=== PATIENT | female | born 1990 | race Caucasian/White ===

== ENCOUNTER 2020-06-03 16:28 | Emergency (ER) | payer MEDICAID ==
[~2020-06-03] VITALS: Ht 162.6 cm; Wt 66.0 kg
[2020-06-03] MEDS ORDERED: IV NORMAL SALINE 1000ML BAG 1,000 ML IV ONE (17:45)
[2020-06-03 17:57] LABS: BILIRUBIN,URINE NEGATIVE (NEG); CLARITY,URINE CLEAR; COLOR,URINE ORANGE; NITRITE,URINE POSITIVE (NEG); PH,URINE 8.5 (<5.0-8.0); PROTEIN,URINE 100 mg/dL (NEG-TRACE)
[2020-06-03 18:02] LABS: BACTERIA,URINE MANY /HPF (0-FEW); WBC,URINE 20-40 /HPF (0-4)
[2020-06-03 18:11] LABS: BASO # 0.1 x10^3/uL (0.0-0.2); BASO % 1 % (0-3); EOS # 0.1 x10^3/uL (0.0-0.7); EOS % 1 % (0-3); HEMATOCRIT 39.5 % (36.0-47.0); HEMOGLOBIN 13.5 g/dL (12.0-15.5); LYMPH # 2.1 x10^3/uL (1.0-4.8); LYMPH % 22 % (24-48); MEAN CORPUSCULAR HEMOGLOBIN 29 pg (25-35); MEAN CORPUSCULAR HGB CONC 34 g/dL (31-37); MEAN CORPUSCULAR VOLUME 84 fL (79-100); MONO # 0.7 x10^3/uL (0.0-1.1); MONO % 7 % (0-9); NEUT # 6.7 x10^3/uL (1.8-7.7); NEUT % 70 % (31-73); PLATELET COUNT 264 x10^3/uL (140-400); RED BLOOD COUNT 4.71 x10^6/uL (3.50-5.40); WHITE BLOOD COUNT 9.6 x10^3/uL (4.0-11.0)
[2020-06-03 18:25] LABS: CALCIUM 9.2 mg/dL (8.5-10.1); CREATININE 1.1 mg/dL (0.6-1.0); GFR 58.7; POTASSIUM 3.3 mmol/L (3.5-5.1)
[2020-06-03 18:29] LABS: ALBUMIN 3.8 g/dL (3.4-5.0); ALBUMIN/GLOBULIN RATIO 0.9 (1.0-1.7); MAGNESIUM 2.4 mg/dL (1.8-2.4); TOTAL BILIRUBIN 0.4 mg/dL (0.2-1.0); TOTAL PROTEIN 7.9 g/dL (6.4-8.2)
[2020-06-03] MEDS ORDERED: cefTRIAXone IV Push 1 GM VIAL. IVP ONE (18:45)
[2020-06-03] MEDS ORDERED: IV NORMAL SALINE 500ML BAG 500 ML IV ONE (18:45)
[2020-06-03] MEDS ORDERED: ONDANSETRON PF 4 MG/2 ML VIAL. IV ONE (18:45)
[2020-06-03] MEDS ORDERED: fentaNYL PF VIAL 100 MCG/2 ML VIAL IV ONE (18:45)
[2020-06-03 19:49] VITALS: BP 126/75
[2020-06-03] MEDS ORDERED: LEVO750T5 PO (19:59)
[2020-06-03] MEDS ORDERED: HYDR-2761 PO (19:59)
--- NOTE | 2020-06-03 19:59 | PHYS DOC ---
Past Medical History Past Medical History: Anxiety, Asthma, Other Additional Past Medical Histor: ADHD Past Surgical History: Appendectomy, Smoking Status: Former Smoker Alcohol Use: Occasionally General Adult EDM: Chief Complaint: FLANK PAIN HPI: HPI: Patient is a 29 year old [f__sex] who presents with [] Review of Systems: Review of Systems: Constitutional: Denies fever or chills. [] Eyes: Denies change in visual acuity. [] HENT: Denies nasal congestion or sore throat. [] Respiratory: Denies cough or shortness of breath. [] Cardiovascular: Denies chest pain or edema. [] GI: Denies abdominal pain, nausea, vomiting, bloody stools or diarrhea. [] : Denies dysuria. [] Musculoskeletal: Denies back pain or joint pain. [] Integument: Denies rash. [] Neurologic: Denies headache, focal weakness or sensory changes. [] Endocrine: Denies polyuria or polydipsia. [] Lymphatic: Denies swollen glands. [] Psychiatric: Denies depression or anxiety. [] Heart Score: Risk Factors: Risk Factors: DM, Current or recent (<one month) smoker, HTN, HLP, family history of CAD, obesity. Risk Scores: Score 0 - 3: 2.5% MACE over next 6 weeks - Discharge Home Score 4 - 6: 20.3% MACE over next 6 weeks - Admit for Clinical Observation Score 7 - 10: 72.7% MACE over next 6 weeks - Early Invasive Strategies Current Medications: Current Medications Medications (Trade) Dose Ordered Sig/Jeannie Start Time Stop Time Status Last Admin Dose Admin Ceftriaxone Sodium (Rocephin) 1 gm 1X ONCE 06/03/20 18:45 06/03/20 18:47 DC 06/03/20 18:53 1 GM Fentanyl Citrate (Fentanyl 2ml Vial) 50 mcg 1X ONCE 06/03/20 18:45 06/03/20 18:47 DC 06/03/20 18:53 50 MCG Ondansetron HCl (Zofran) 4 mg 1X ONCE 06/03/20 18:45 06/03/20 18:47 DC 06/03/20 18:52 4 MG Sodium Chloride 500 ml @ 500 mls/hr 1X ONCE 06/03/20 18:45 06/03/20 19:44 DC 06/03/20 19:13 500 MLS/HR Allergies: Allergies: Allergies Coded Allergies Type Severity Reaction Last Updated Verified No Known Drug Allergies 06/03/20 No Physical Exam: PE: Constitutional: Well developed, well nourished, no acute distress, non-toxic appearance. [] HENT: Normocephalic, atraumatic, bilateral external ears normal, oropharynx moist, no oral exudates, nose normal. [] Eyes: PERRLA, EOMI, conjunctiva normal, no discharge. [] Neck: Normal range of motion, no tenderness, supple, no stridor. [] Cardiovascular:Heart rate regular rhythm, no murmur [] Lungs & Thorax: Bilateral breath sounds clear to auscultation [] Abdomen: Bowel sounds normal, soft, no tenderness, no masses, no pulsatile masses. [] Skin: Warm, dry, no erythema, no rash. [] Back: No tenderness, no CVA tenderness. [] Extremities: No tenderness, no cyanosis, no clubbing, ROM intact, no edema. [] Neurologic: Alert and oriented X 3, normal motor function, normal sensory function, no focal deficits noted. [] Psychologic: Affect normal, judgement normal, mood normal. [] Current Patient Data: Labs: Laboratory Tests Test 06/03/20 17:28 06/03/20 17:52 06/03/20 18:00 Urine Collection Type Void Urine Color [place] Urine Clarity Clear Urine pH 8.5 (<5.0-8.0) Urine Specific [place] 1.020 (1.000-1.030) Urine Protein 100 mg/dL (NEG-TRACE) Urine Glucose (UA) Negative mg/dL (NEG) Urine Ketones (Stick) Trace mg/dL (NEG) Urine Blood Negative (NEG) Urine Nitrite Positive (NEG) Urine Bilirubin Negative (NEG) Urine Urobilinogen Dipstick 1.0 mg/dL (0.2 mg/dL) Urine Leukocyte Esterase Moderate (NEG) Urine RBC 1-2 /HPF (0-2) Urine WBC 20-40 /HPF (0-4) Urine Squamous Epithelial Cells Mod /LPF Urine Bacteria Many /HPF (0-FEW) Urine Mucus Mod /LPF POC Urine HCG, Qualitative Hcg negative (Negative) White Blood Count 9.6 x10^3/uL (4.0-11.0) Red Blood Count 4.71 x10^6/uL (3.50-5.40) Hemoglobin 13.5 g/dL (12.0-15.5) Hematocrit 39.5 % (36.0-47.0) Mean Corpuscular Volume 84 fL (79-100) Mean Corpuscular Hemoglobin 29 pg (25-35) Mean Corpuscular Hemoglobin Concent 34 g/dL (31-37) Red Cell Distribution Width 14.0 % (11.5-14.5) Platelet Count 264 x10^3/uL (140-400) Neutrophils (%) (Auto) 70 % (31-73) Lymphocytes (%) (Auto) 22 % (24-48) L Monocytes (%) (Auto) 7 % (0-9) Eosinophils (%) (Auto) 1 % (0-3) Basophils (%) (Auto) 1 % (0-3) Neutrophils # (Auto) 6.7 x10^3/uL (1.8-7.7) Lymphocytes # (Auto) 2.1 x10^3/uL (1.0-4.8) Monocytes # (Auto) 0.7 x10^3/uL (0.0-1.1) Eosinophils # (Auto) 0.1 x10^3/uL (0.0-0.7) Basophils # (Auto) 0.1 x10^3/uL (0.0-0.2) Sodium Level 139 mmol/L (136-145) Potassium Level 3.3 mmol/L (3.5-5.1) L Chloride Level 104 mmol/L (98-107) Carbon Dioxide Level 25 mmol/L (21-32) Anion Gap 10 (6-14) Blood Urea Nitrogen 12 mg/dL (7-20) Creatinine 1.1 mg/dL (0.6-1.0) H Estimated GFR (Cockcroft-Gault) 58.7 BUN/Creatinine Ratio 11 (6-20) Glucose Level 81 mg/dL (70-99) Calcium Level 9.2 mg/dL (8.5-10.1) Magnesium Level 2.4 mg/dL (1.8-2.4) Total Bilirubin 0.4 mg/dL (0.2-1.0) Aspartate Amino Transferase (AST) 14 U/L (15-37) L Alanine Aminotransferase (ALT) 16 U/L (14-59) Alkaline Phosphatase 44 U/L (46-116) L Total Protein 7.9 g/dL (6.4-8.2) Albumin 3.8 g/dL (3.4-5.0) Albumin/Globulin Ratio 0.9 (1.0-1.7) L Lipase 125 U/L (73-393) Laboratory Tests 06/03/20 18:00 Laboratory Tests 06/03/20 18:00 Vital Signs: Vital Signs Date Time Temp Pulse Resp B/P (MAP) Pulse Ox O2 Delivery O2 Flow Rate FiO2 06/03/20 18:53 18 99 Room Air 06/03/20 18:16 98.3 105 118/73 (88) 98.3 EKG: EKG: [] Radiology/Procedures: Radiology/Procedures: [] Course & Med Decision Making: Course & Med Decision Making Pertinent Labs and Imaging studies reviewed. (See chart for details) [] Dragon Disclaimer: Dragon Disclaimer: This electronic medical record was generated, in whole or in part, using a voice recognition dictation system. Departure Departure Impression: Primary Impression: Pyelonephritis Disposition: 01 DC HOME SELF CARE/HOMELESS Condition: STABLE Referrals: NO PCP (PCP) Patient Instructions: Pyelonephritis, Adult, [id number] Additional Instructions: Fill prescription(s) and use as directed. Avoid bladder irritants such as caffeine, carbonation, and spicy foods. Increase clear fluids. Follow-up with her primary care doctor in 1 to 2 days, return to the ER if symptoms worsen, you cannot tolerate fluids or food, or you develop a fever. Scripts Hydrocodone Bit/Acetaminophen (HYDROCODONE-APAP 5-325 ) 1 Tab Tablet 0.5-1 TAB PO PRN Q6HRS PRN for SEVERE PAIN 7-10, #10 TAB 0 Refills Prov: LEIDA DOWD [employer] 06/03/20 Levofloxacin (LEVOFLOXACIN) 750 Mg Tablet 1 TAB PO DAILY, #5 TAB 0 Refills avoid strenous physical activity while taking this medication due increased risk of injury Prov: LEIDA [employer] 06/03/20 LEIDA [employer] Jun 03, 2020 19:59
== END 2020-06-03 20:11 | disposition home or self-care (01) ==
LOC: ER 16:28
DX: N12 Tubulo-interstitial nephritis, not specified as acute or chronic (principal); F41.9 Anxiety disorder, unspecified; J45.909 Unspecified asthma, uncomplicated; Z90.89 Acquired absence of other organs; Z87.891 Personal history of nicotine dependence
CPT/HCPCS: 36415; 80053; 81001; 81025; 83690; 83735; 85025; 87086; 96361; 96374; 96375; 99284; J0696; J2405; J3010; J7030; J7040

== ENCOUNTER 2020-06-15 23:01 | Emergency (ER) | payer MEDICAID ==
[~2020-06-15] VITALS: Ht 162.6 cm; Wt 65.0 kg
[~2020-06-15 23:01] MED LIST: HYDR-2761 PO; LEVO750T5 PO
[2020-06-15 23:19] VITALS: BP 124/88
[2020-06-15] MEDS ORDERED: HYDR-3164 PO (23:40)
[2020-06-15] MEDS ORDERED: NEOM10DR32 EACH EAR (23:40)
--- NOTE | 2020-06-15 23:40 | PHYS DOC ---
Past Medical History Past Medical History: Anxiety, Asthma, Other Additional Past Medical Histor: ADHD Past Surgical History: Appendectomy, Smoking Status: Former Smoker Alcohol Use: Occasionally Drug Use: None General Adult EDM: Chief Complaint: EARACHE/EAR PAIN HPI: HPI: Patient is a 29 y/o female with a history of ADHD and anxiety who presents to the ED with bilateral ear pain after she put in carbamide peroxide (debrox) ear drops in her ears 3 hrs ago. She states that she felt a chunk of wax in her ear and also reports using q-tips. Patient took Tylenol and advil without any relief of pain. She reports this is the first time she has used the medication. Denies any other symptoms. Review of Systems: Review of Systems: Constitutional: Denies fever or chills Eyes: Denies redness or eye pain HENT: Reports ear pain; Denies nasal congestion or sore throat Respiratory: Denies cough or shortness of breath Cardiovascular: Denies chest pain or palpitations GI: Denies abdominal pain, nausea, or vomiting : Denies dysuria or hematuria Musculoskeletal: Denies back pain or joint pain Integument: Denies rash or skin lesions Neurologic: Denies headache, focal weakness or sensory changes Complete systems were reviewed and found to be within normal limits, except as documented in this note. Allergies: Allergies: Allergies Coded Allergies Type Severity Reaction Last Updated Verified No Known Drug Allergies 06/03/20 No Physical Exam: PE: Constitutional: Well developed, well nourished, uncomfortable, non-toxic appearance HENT: Normocephalic, atraumatic, Bilateral TMs with erythema without drainage or pus, external canals bilaterally with irritation. Eyes: Conjunctiva normal, no discharge Neck: Normal range of motion, no tenderness, supple Lungs & Thorax: No respiratory distress, equal chest rise and fall Abdomen: Soft, no tenderness Skin: Warm, dry, no erythema, no rash Extremities: No tenderness, ROM intact, no edema Neurologic: Alert and oriented X 3, no focal deficits noted Psychologic: Affect normal, judgment normal Current Patient Data: Vital Signs: Vital Signs Date Time Temp Pulse Resp B/P (MAP) Pulse Ox O2 Delivery O2 Flow Rate FiO2 06/15/20 23:19 97.9 88 22 124/88 (100) 98 Room Air 97.9 Course & Med Decision Making: Course & Med Decision Making Patient is a 29-year-old female who presents with bilateral ear pain. Using carbamide peroxide for first time in the bilateral ears. Vital signs stable. PE showed bilateral TMs with erythema and erythema of bilateral external canals without discharge. Treated with otic Yzyaxiio-pfmtownln-mtjvmoeabfakqg suspension and hydrocodone. Patient stable for discharge with outpatient follow-up with PCP. Discussed findings and plan with patient and family, who acknowledge understanding and agreement. Liss Disclaimer: Liss Disclaimer: This electronic medical record was generated, in whole or in part, using a voice recognition dictation system. Departure Departure Impression: Primary Impression: Otitis externa Qualified Codes: H60.503 - Unspecified acute noninfective otitis externa, bilateral Additional Impression: Contact dermatitis Qualified Codes: L25.1 - Unspecified contact dermatitis due to drugs in contact with skin Disposition: 01 DC HOME SELF CARE/HOMELESS Condition: STABLE Referrals: NO PCP (PCP) Patient Instructions: Contact Dermatitis, Sxgv-rb-Rqam, Otitis Externa, Easy-t o-Read Additional Instructions: Please add Debrox to allergy list and discontinue any future list Scripts Neomycin/Polymyxin B Sulf/Hc (THEVUADP-AJGYWNBWM-PX EAR SUSP) 10 Ml Drops.susp 4 DROP EACH EAR QID for 5 Days, #10 ML Prov: MIRIAM BANKS DO 06/15/20 Hydrocodone/Apap 5-325 (NORCO 5-325 TABLET) 1 Each Tablet 0.5-1 TAB PO Q4-6HRS PRN for PAIN, #10 TAB Prov: MIRIAM BANKS DO 06/15/20 MIRIAM BANKS DO Jun 15, 2020 23:40
[2020-06-16] MEDS ORDERED: NEOMYCIN/POLYMYXIN/HC OTIC SUSPENSION 10ML BOTTLE. AU ONE
[2020-06-16] MEDS ORDERED: HYDROcodone/APAP 5/325MG 1 TAB TABLET PO ONE
== END 2020-06-15 23:58 | disposition home or self-care (01) ==
LOC: ER 23:01
DX: H60.503 Unspecified acute noninfective otitis externa, bilateral (principal); L25.1 Unspecified contact dermatitis due to drugs in contact with skin; J45.909 Unspecified asthma, uncomplicated; F90.9 Attention-deficit hyperactivity disorder, unspecified type; Z87.891 Personal history of nicotine dependence
CPT/HCPCS: 99283

== ENCOUNTER 2021-02-22 13:29 | Emergency (ER) | payer MEDICAID, OTHER ==
[~2021-02-22] VITALS: Ht 162.6 cm; Wt 128.0 kg
[~2021-02-22 13:29] MED LIST changes: +HYDR-3164 PO; +NEOM10DR32 EACH EAR
[2021-02-22 15:56] LABS: BILIRUBIN,URINE SMALL (NEG); CLARITY,URINE CLEAR; COLOR,URINE AMBER; NITRITE,URINE NEGATIVE (NEG); PROTEIN,URINE NEGATIVE (NEG-TRACE); UROBILINOGEN,URINE 0.2 mg/dL (0.2 mg/dL)
[2021-02-22 16:00] LABS: BACTERIA,URINE MODERATE /HPF (0-FEW); RBC,URINE 0 /HPF (0-2)
[2021-02-22] MEDS ORDERED: IV NORMAL SALINE 1000ML BAG 1,000 ML IV SCH (16:15)
[2021-02-22] MEDS ORDERED: KETOROLAC 30 MG/ML VIAL. IVP ONE (16:15)
[2021-02-22] MEDS ORDERED: ONDANSETRON PF 4 MG/2 ML VIAL. IVP ONE (16:15)
--- NOTE | 2021-02-22 16:17 | PHYS DOC ---
Past Medical History Past Medical History: Kidney Infection, UTI Additional Past Medical Histor: ADHD Past Surgical History: Appendectomy, Smoking Status: Current Every Day Smoker Additional Information: VAP, E CIG Alcohol Use: None Drug Use: None General Adult EDM: Chief Complaint: NAUSEA/VOMITING/DIARRHEA HPI: HPI: Patient is a 30 year old female who presents with began having epigastric abdominal sharp pain that radiates around to her back this morning and vomited once. She also has some nausea. She states that she has had a kidney infection in the past. Patient denies shortness of breath, fever, chills, body aches, diarrhea, chest pain, numbness or tingling, dizziness, headache, cough, focal weakness. She has a history of ADHD, , appendectomy, smoking, kidney infection and UTIs. She rates her pain at this time a 5 out of 10. She did take Tylenol at noon, Zofran 4 mg, muscle relaxer. Review of Systems: Review of Systems: Constitutional: Denies fever or chills. [] Eyes: Denies change in visual acuity. [] HENT: Denies nasal congestion or sore throat. [] Respiratory: Denies cough or shortness of breath. [] Cardiovascular: Denies chest pain or edema. [] GI: +abdominal pain, +nausea, +vomiting, denies bloody stools or diarrhea. [] : Denies dysuria. [] Musculoskeletal: + bilateral flank back pain or denies joint pain. [] Integument: Denies rash. [] Neurologic: Denies headache, focal weakness or sensory changes. [] Endocrine: Denies polyuria or polydipsia. [] Lymphatic: Denies swollen glands. [] Psychiatric: Denies depression or anxiety. [] Heart Score: C/O Chest Pain: No Risk Factors: Risk Factors: DM, Current or recent (<one month) smoker, HTN, HLP, family history of CAD, obesity. Risk Scores: Score 0 - 3: 2.5% MACE over next 6 weeks - Discharge Home Score 4 - 6: 20.3% MACE over next 6 weeks - Admit for Clinical Observation Score 7 - 10: 72.7% MACE over next 6 weeks - Early Invasive Strategies Allergies: Allergies: Allergies Coded Allergies Type Severity Reaction Last Updated Verified No Known Drug Allergies 06/03/20 No Physical Exam: PE: Constitutional: Well developed, well nourished, no acute distress, non-toxic appearance. [] HENT: Normocephalic, atraumatic, bilateral external ears normal, oropharynx moist, no oral exudates, nose normal. [] Eyes: PERRLA, EOMI, conjunctiva normal, no discharge. [] Neck: Normal range of motion, no tenderness, supple, no stridor. [] Cardiovascular:Heart rate regular rhythm, no murmur [] Lungs & Thorax: Bilateral breath sounds clear to auscultation [] Abdomen: Bowel sounds normal, soft, generalized tenderness, no masses, no pulsatile masses. [] Skin: Warm, dry, no erythema, no rash. [] Back: No tenderness, bilateral CVA tenderness. [] Extremities: No tenderness, no cyanosis, no clubbing, ROM intact, no edema. [] Neurologic: Alert and oriented X 3, normal motor function, normal sensory function, no focal deficits noted. [] Psychologic: Affect normal, judgement normal, mood normal. [] Current Patient Data: Labs: Laboratory Tests Test 02/22/21 15:45 Urine Collection Type Unknown Urine Color [place] Urine Clarity Clear Urine pH 7.0 (<5.0-8.0) Urine Specific [place] >=1.030 (1.000-1.030) Urine Protein Negative mg/dL (NEG-TRACE) Urine Glucose (UA) Negative mg/dL (NEG) Urine Ketones (Stick) Trace mg/dL (NEG) Urine Blood Negative (NEG) Urine Nitrite Negative (NEG) Urine Bilirubin Small (NEG) Urine Urobilinogen Dipstick 0.2 mg/dL (0.2 mg/dL) Urine Leukocyte Esterase Negative (NEG) Urine RBC 0 /HPF (0-2) Urine WBC 1-4 /HPF (0-4) Urine Squamous Epithelial Cells Many /LPF Urine Bacteria Moderate /HPF (0-FEW) Urine Mucus Mod /LPF Vital Signs: Vital Signs Date Time Temp Pulse Resp B/P (MAP) Pulse Ox O2 Delivery O2 Flow Rate FiO2 02/22/21 15:20 98.7 105 22 105/65 (78) 100 Room Air 98.7 EKG: EKG: [] Radiology/Procedures: Radiology/Procedures: [] Impression: [facility] [address] [place] [address] IMAGING REPORT Signed PATIENT: HARISH PANTOJA MACCOUNT: [id number] : 1990 LOCATION: ER AGE: 30 SEX: F EXAM STATUS: REG ER ORD. PHYSICIAN: NELLY CAAL APRN REASON: VOMITING, EPIGASTRIC PAIN PROCEDURE: PORTABLE CHEST 1V EXAM: Chest, single view. HISTORY: Vomiting. Pain. COMPARISON: None. FINDINGS: A frontal view of the chest is obtained. There is no infiltrate, pleural effusion or pneumothorax. The heart is normal in size. IMPRESSION: No acute pulmonary finding. Electronically signed by: Antonietta Zhao MD (02/22/2021 5:22 PM) [id number] DICTATED and SIGNED BY: ANTONIETTA ZHAO MD DATE: 02/22/21 [id number] [facility] [address] [place] [address] IMAGING REPORT Signed PATIENT: HARISH PANTOJA MACCOUNT: [id number] : 1990 LOCATION: ER AGE: 30 SEX: F EXAM STATUS: REG ER ORD. PHYSICIAN: NELLY CAAL APRN REASON: VOMITING, TENDERNESS PROCEDURE: CT ABD PELV W/ IV CONTRST ONLY EXAM: Abdomen and pelvis CT with intravenous contrast. HISTORY: Pain. TECHNIQUE: Computed tomographic images of the abdomen and pelvis were obtained following the administration of intravenous contrast. Multiplanar reformatting was performed. *One or more of the following individualized dose reduction techniques were utilized for this examination: 1. Automated exposure control. 2. Adjustment of the mA and/or kV according to patient size. 3. Use of iterative reconstruction technique. COMPARISON: None. FINDINGS: Evaluation of the lower thorax is unremarkable. There is infiltration of the liver along the falciform ligament. No suspicious hepatic lesion is seen. The gallbladder, pancreas, stomach and adrenal glands are unremarkable. The spleen is upper normal in size. The kidneys are unremarkable. The appendix is absent. There is a large amount of stool throughout the colon. There is no evidence of bowel obstruction. There is no abnormal bowel wall thickening. The bladder is nearly empty. The uterus and adnexal regions are unremarkable. There is no lymphadenopathy. There is no suspicious osseous lesion. IMPRESSION: 1. Moderate colonic stool. Correlate for constipation. 2. No acute abdominal or pelvic finding. Electronically signed by: Antonietta Zhao MD (02/22/2021 5:39 PM) [id number] DICTATED and SIGNED BY: ANTONIETTA ZHAO MD DATE: 02/22/21 [id number] 0 Course & Med Decision Making: Course & Med Decision Making Pertinent Labs and Imaging studies reviewed. (See chart for details) See HPI. Alert and oriented x4. Ambulatory with a steady gait. Abdomen is sof t with generalized tenderness. Bilateral CVA tenderness. Skin pink warm and dry. Speaks in full clear sentences. Lungs are clear to auscultation all lobes. [] Dragon Disclaimer: Dragon Disclaimer: This electronic medical record was generated, in whole or in part, using a voice recognition dictation system. Departure Departure Impression: Primary Impression: Constipation Qualified Codes: K59.00 - Constipation, unspecified Disposition: HOME / SELF CARE / HOMELESS Condition: STABLE Referrals: NO PCP (PCP) Patient Instructions: Constipation, Adult Additional Instructions: Follow-up with primary care provider. Drink plenty of fluids. Take medication as prescribed. Scripts Magnesium Citrate (MAGNESIUM CITRATE) 296 Ml Solution 296 ML PO ONCE, #296 ML Prov: NELLY CAAL APRN 02/22/21 NELLY CAAL APRN Feb 22, 2021 16:17
[2021-02-22] MEDS ORDERED: IV NORMAL SALINE 1000ML BAG 1,000 ML IV ONE (16:30)
[2021-02-22 16:42] LABS: BASO % 0 % (0-3); EOS % 0 % (0-3); HEMATOCRIT 39.1 % (36.0-47.0); HEMOGLOBIN 13.3 g/dL (12.0-15.5); LYMPH # 0.4 x10^3/uL (1.0-4.8); LYMPH % 9 % (24-48); MEAN CORPUSCULAR HEMOGLOBIN 29 pg (25-35); MEAN CORPUSCULAR HGB CONC 34 g/dL (31-37); MEAN CORPUSCULAR VOLUME 86 fL (79-100); MONO # 0.1 x10^3/uL (0.0-1.1); MONO % 3 % (0-9); NEUT # 4.2 x10^3/uL (1.8-7.7); NEUT % 88 % (31-73); PLATELET COUNT 154 x10^3/uL (140-400); RED BLOOD COUNT 4.52 x10^6/uL (3.50-5.40); RED CELL DISTRIBUTION WIDTH 12.7 % (11.5-14.5); WHITE BLOOD COUNT 4.8 x10^3/uL (4.0-11.0)
[2021-02-22 16:57] LABS: CALCIUM 8.2 mg/dL (8.5-10.1); CREATININE 0.8 mg/dL (0.6-1.0); GFR 84.2; POTASSIUM 3.5 mmol/L (3.5-5.1)
[2021-02-22] MEDS ORDERED: IOHEXOL 300 MG/ML 100ML VIAL. IV ONE (17:00)
[2021-02-22] MEDS ORDERED: CONTRAST GIVEN. MC PRN (17:00)
[2021-02-22 17:02] LABS: ALBUMIN 3.4 g/dL (3.4-5.0); TOTAL BILIRUBIN 0.7 mg/dL (0.2-1.0); TOTAL PROTEIN 6.9 g/dL (6.4-8.2)
[2021-02-22 17:13] LABS: U PREG PATIENT NEGATIVE (NEG)
--- NOTE | 2021-02-22 17:24 | RAD ---
EXAM: Chest, single view. HISTORY: Vomiting. Pain. COMPARISON: None. FINDINGS: A frontal view of the chest is obtained. There is no infiltrate, pleural effusion or pneumo thorax. The heart is normal in size. IMPRESSION: No acute pulmonary finding. Electronically signed by: Antonietta Zhao MD (02/22/2021 5:22 PM) [id number]
--- NOTE | 2021-02-22 17:42 | RAD ---
EXAM: Abdomen and pelvis CT with intravenous contrast. HISTORY: Pain. TECHNIQUE: Computed tomographic images of the abdomen and pelvis were obtained following the administ ration of intravenous contrast. Multiplanar reformatting was performed. *One or more of the following individualized dose reduction techniques were utilized for this examina tion: 1. Automated exposure control. 2. Adjustment of the mA and/or kV according to patient size. 3. Use of iterative reconstruction technique. COMPARISON: None. FINDINGS: Evaluation of the lower thorax is unremarkable. There is infiltration of the liver along th e falciform ligament. No suspicious hepatic lesion is seen. The gallbladder, pancreas, stomach and ad renal glands are unremarkable. The spleen is upper normal in size. The kidneys are unremarkable. The appendix is absent. There is a large amount of stool throughout the colon. There is no evidence o f bowel obstruction. There is no abnormal bowel wall thickening. The bladder is nearly empty. The esha deejay and adnexal regions are unremarkable. There is no lymphadenopathy. There is no suspicious osseous lesion. IMPRESSION: 1. Moderate colonic stool. Correlate for constipation. 2. No acute abdominal or pelvic finding. Electronically signed by: Antonietta Zhao MD (02/22/2021 5:39 PM) PRASHANTH
[2021-02-22 17:43] LABS: % BANDS 7 % (0-9); % BASOS 1 % (0-3); % LYMPHS 8 % (24-48); % MONOS 2 % (0-10); % SEGS 82 % (35-66)
[2021-02-22 17:44] LABS: PLT ESTIMATE ADEQUATE (ADEQUATE)
[2021-02-22] MEDS ORDERED: MAGN296S68 PO (17:51)
--- NOTE | 2021-02-22 18:22 | EKG ---
[facility] [address] [place] [address] Test Date: 2021-02-22 Test Time: 17:22:42 Pat Name: HARISH PANTOJA Department: Room: Gender: F Osd Clerk: : 1990 Requested By: NELLY CAAL Order Number: [id number] Reading MD: Measurements Intervals Simpson Rate: 89 P: 51 WA: 144 QRS: 67 QRSD: 88 T: 55 QT: 392 QTc: 478 Interpretive Statements SINUS RHYTHM INCOMPLETE RIGHT BUNDLE BRANCH BLOCK QRS(T) CONTOUR ABNORMALITY CONSIDER ANTEROSEPTAL MYOCARDIAL DAMAGE PROLONGED QT POSSIBLY ABNORMAL ECG RI6.01 No previous ECG available for comparison
[2021-02-22] MEDS ORDERED: METOCLOPRAMIDE HCL 10 MG/2 ML VIAL. IVP ONE (20:00)
[2021-02-22 21:06] VITALS: BP 117/74
== END 2021-02-22 21:25 | disposition home or self-care (01) ==
LOC: ER 13:29
DX: K59.00 Constipation, unspecified (principal); F17.200 Nicotine dependence, unspecified, uncomplicated; F90.9 Attention-deficit hyperactivity disorder, unspecified type; Z90.89 Acquired absence of other organs; F17.210 Nicotine dependence, cigarettes, uncomplicated
CPT/HCPCS: 36415; 71045; 74177; 80053; 81001; 81025; 83690; 84484; 85007; 85025; 87086; 93005; 96361; 96374; 96375; 99285; J1885; J2405; J2765; J7030; Q9967

== ENCOUNTER 2021-04-23 10:13 | Observation (INO) | payer MEDICAID ==
[~2021-04-23] VITALS: Ht 162.6 cm; Wt 51.0 kg
[~2021-04-23 10:13] MED LIST changes: +MAGN296S68 PO
--- NOTE | 2021-04-23 10:42 | PHYS DOC ---
Past Medical History Past Medical History: Kidney Infection, UTI Additional Past Medical Histor: ADHD Past Surgical History: Appendectomy, Smoking Status: Current Every Day Smoker Alcohol Use: None Drug Use: None General Adult EDM: Chief Complaint: FLANK PAIN HPI: HPI: Patient is a 30 year old female who presents with 4 days of bilateral flank pain but she states more so on the left that radiates all across her abdomen. She rates her pain a 10 out of 10 and states is a throbbing ache. She has been on Bactrim for the last 4 days for urinary tract infection. She states she is not getting better. States she has been running a fever and having body aches. States that her primary care sent her here to the emergency room. She did take Tylenol earlier this morning without relief. Patient denies nausea, vomiting, diarrhea, cough, shortness of breath, chest pain, dizziness, headache, numbness or tingling, focal weakness, vision change. She has a history of kidney infection, UTI, ADHD, , appendectomy, smoking. Review of Systems: Review of Systems: Constitutional: + fever or +chills. [] Eyes: Denies change in visual acuity. [] HENT: Denies nasal congestion or sore throat. [] Respiratory: Denies cough or shortness of breath. [] Cardiovascular: Denies chest pain or edema. [] GI: + abdominal pain, denies nausea, vomiting, bloody stools or diarrhea. [] : Denies dysuria. [] Musculoskeletal: +Bilateral flank back pain or denies joint pain. + Body aches [] Integument: Denies rash. [] Neurologic: Denies headache, focal weakness or sensory changes. [] Endocrine: Denies polyuria or polydipsia. [] Lymphatic: Denies swollen glands. [] Psychiatric: Denies depression or anxiety. [] Heart Score: C/O Chest Pain: No Risk Factors: Risk Factors: DM, Current or recent (<one month) smoker, HTN, HLP, family history of CAD, obesity. Risk Scores: Score 0 - 3: 2.5% MACE over next 6 weeks - Discharge Home Score 4 - 6: 20.3% MACE over next 6 weeks - Admit for Clinical Observation Score 7 - 10: 72.7% MACE over next 6 weeks - Early Invasive Strategies Allergies: Allergies: Allergies Coded Allergies Type Severity Reaction Last Updated Verified No Known Drug Allergies 06/03/20 No Physical Exam: PE: Constitutional: Well developed, well nourished, no acute distress, non-toxic appearance. [] HENT: Normocephalic, atraumatic, bilateral external ears normal, oropharynx moist, no oral exudates, nose normal. [] Eyes: PERRLA, EOMI, conjunctiva normal, no discharge. [] Neck: Normal range of motion, no tenderness, supple, no stridor. [] Cardiovascular:Heart rate regular tachycardia rhythm, no murmur [] Lungs & Thorax: Bilateral breath sounds clear to auscultation [] Abdomen: Bowel sounds normal, soft, generalized tenderness, no masses, no pulsatile masses. [] Skin: Warm, dry, no erythema, no rash. [] Back: No tenderness,Bilateral CVA tenderness. [] Extremities: No tenderness, no cyanosis, no clubbing, ROM intact, no edema. [] Neurologic: Alert and oriented X 3, normal motor function, normal sensory function, no focal deficits noted. [] Psychologic: Affect normal, judgement normal, mood normal. [] Current Patient Data: Vital Signs: Vital Signs Date Time Temp Pulse Resp B/P (MAP) Pulse Ox O2 Delivery O2 Flow Rate FiO2 04/23/21 10:20 98.8 110 16 133/71 (88) 100 Room Air 98.8 EKG: EKG: [] Radiology/Procedures: Radiology/Procedures: [] Impression: [facility] [address] [place], [place] [id number] IMAGING REPORT Signed PATIENT: HARISH PANTOJA MACCOUNT: [id number] : 1990 LOCATION: ER AGE: 30 SEX: F EXAM STATUS: REG ER ORD. PHYSICIAN: NELLY CAAL APRN REASON: flank pain, abdominal pain, fever PROCEDURE: CT ABD PELV W/ IV CONTRST ONLY EXAMINATION: CT abdomen and pelvis with IV contrast. INDICATION:30 years, Female, flank pain, abdominal pain, fever. TECHNIQUE: Axial CT images of the abdomen and pelvis were obtained. Coronal and sagittal reformatted performed. COMPARISON: 02/22/2021. Exposure: One or more of the following individualized dose reduction techniques were utilized for this examination: 1. Automated exposure control 2. Adjustment of the mA and/or kV according to patient size 3. Use of iterative reconstruction technique. FINDINGS: LOWER CHEST: Unremarkable ABDOMEN/PELVIS: Asymmetric mildly enlarged left kidney with heterogeneous enhancement and perinephric fat stranding. No loculated fluid collection to suggest abscess. No hydronephrosis or nephrolithiasis in either kidney. Unremarkable urinary bladder. Liver, spleen, pancreas, biliary ducts, and adrenals are unremarkable. No bowel obstruction. No lymphadenopathy in the abdomen or pelvis by size criteria. Normal caliber abdominal aorta. Mesenteric arteries and portal vein are patent. Unremarkable uterus. MUSCULOSKELETAL: No acute osseous process. IMPRESSION: Acute uncomplicated left pyelonephritis. Electronically signed by: Erin Deleon MD (04/23/2021 12:44 PM) [facility] DICTATED and SIGNED BY: ERIN DELEON MD DATE: 04/23/21 [id number] Course & Med Decision Making: Course & Med Decision Making Pertinent Labs and Imaging studies reviewed. (See chart for details) See HPI. Alert and oriented x4. Ambulatory steady gait. Skin pink warm dry. Tachycardic. Abdomen is soft with generalized tenderness. Bilateral CVA tenderness. Mucous membranes moist. Cap refill less than 2 seconds. She is afebrile this time. CT shows pyelonephritis. She is received Rocephin IV. She is received 2 L of normal saline. She meets sepsis. Lactic acid 2.5. Tachycardic. Failed out patient therapy. [] Liss Disclaimer: Liss Disclaimer: This electronic medical record was generated, in whole or in part, using a voice recognition dictation system. Date and Time of Reassessment Date: Apr 23, 2021 Time: 12:49 Fluid Challenge Is the fluid challenge complet: No IBW Target Volume Used: No BMI > 30: No Vital Signs Vital Signs: Vital Signs Date Time Temp Pulse Resp B/P (MAP) Pulse Ox O2 Delivery O2 Flow Rate FiO2 04/23/21 12:00 99 16 113/60 (77) 99 Room Air 04/23/21 10:20 98.8 98.8 Temperature Source: Oral Respirations Respiratory Effort: Normal Respiratory Pattern: Normal Cardiovascular Pulse Rhythm: Regular Heart: Nml rate, reg. rhythm Capillary Refil Capillary Refill: Rt Hand < 3 seconds Peripheral Pulse Pulse Location: Radial Pulse Strength: Normal (2+) Pulse Assessment Method: Monitor Integumentary Skin: Warm Skin Moisture: Dry Skin Turgor: Normal Skin Color: warm Fingernail Color: WNL Departure Departure Impression: Primary Impression: Pyelonephritis Additional Impression: SIRS (systemic inflammatory response syndrome) Disposition: 09 ADMITTED INPATIENT Admitting Physician: HIMVickey Condition: STABLE Referrals: UNKNOWN PCP NAME (PCP) NELLY CAAL GROC[employer] CARRIER Apr 23, 2021 10:42
[2021-04-23] MEDS ORDERED: IV NORMAL SALINE 1000ML BAG 1,000 ML IV SCH (10:45)
[2021-04-23] MEDS ORDERED: fentaNYL PF VIAL 100 MCG/2 ML VIAL IVP ONE (10:45)
[2021-04-23 10:48] LABS: BASO % 0 % (0-3); EOS % 0 % (0-3); HEMATOCRIT 36.6 % (36.0-47.0); HEMOGLOBIN 12.3 g/dL (12.0-15.5); LYMPH # 0.6 x10^3/uL (1.0-4.8); LYMPH % 8 % (24-48); MEAN CORPUSCULAR HEMOGLOBIN 29 pg (25-35); MEAN CORPUSCULAR HGB CONC 34 g/dL (31-37); MEAN CORPUSCULAR VOLUME 88 fL (79-100); MONO # 0.3 x10^3/uL (0.0-1.1); MONO % 4 % (0-9); NEUT # 6.7 x10^3/uL (1.8-7.7); NEUT % 88 % (31-73); PLATELET COUNT 145 x10^3/uL (140-400); RED BLOOD COUNT 4.18 x10^6/uL (3.50-5.40); RED CELL DISTRIBUTION WIDTH 13.6 % (11.5-14.5); WHITE BLOOD COUNT 7.7 x10^3/uL (4.0-11.0)
[2021-04-23 10:53] LABS: CALCIUM 8.7 mg/dL (8.5-10.1); GFR 65.1; POTASSIUM 3.3 mmol/L (3.5-5.1)
[2021-04-23 10:59] LABS: ALBUMIN 2.8 g/dL (3.4-5.0); ALBUMIN/GLOBULIN RATIO 0.7 (1.0-1.7); TOTAL BILIRUBIN 0.3 mg/dL (0.2-1.0); TOTAL PROTEIN 6.9 g/dL (6.4-8.2)
[2021-04-23] MEDS ORDERED: IOHEXOL 300 MG/ML 100ML VIAL. IV ONE (11:30)
[2021-04-23 11:32] LABS: % BANDS 6 % (0-9); % BASOS 1 % (0-3); % LYMPHS 5 % (24-48); % MONOS 2 % (0-10); % SEGS 86 % (35-66); PLT ESTIMATE ADEQUATE (ADEQUATE)
[2021-04-23] MEDS ORDERED: CONTRAST GIVEN. MC PRN (11:45)
[2021-04-23 11:57] LABS: BILIRUBIN,URINE NEGATIVE (NEG); CLARITY,URINE CLOUDY; COLOR,URINE YELLOW; NITRITE,URINE NEGATIVE (NEG); PROTEIN,URINE 30 mg/dL (NEG-TRACE); UROBILINOGEN,URINE 0.2 mg/dL (0.2 mg/dL)
[2021-04-23 11:58] LABS: BACTERIA,URINE MODERATE /HPF (0-FEW); RBC,URINE 0 /HPF (0-2)
[2021-04-23] MEDS ORDERED: IV NORMAL SALINE 1000ML BAG 1,000 ML IV ONE (12:00)
--- NOTE | 2021-04-23 12:46 | RAD ---
EXAMINATION: CT abdomen and pelvis with IV contrast. INDICATION:30 years, Female, flank pain, abdominal pain, fever. TECHNIQUE: Axial CT images of the abdomen and pelvis were obtained. Coronal and sagittal reformatted performed. COMPARISON: 02/22/2021. Exposure: One or more of the following individualized dose reduction techniques were utilized for thi s examination: 1. Automated exposure control 2. Adjustment of the mA and/or kV according to patient size 3. Use of iterative reconstruction technique. FINDINGS: LOWER CHEST: Unremarkable ABDOMEN/PELVIS: Asymmetric mildly enlarged left kidney with heterogeneous enhancement and perinephric fat stranding. No loculated fluid collection to suggest abscess. No hydronephrosis or nephrolithiasis in either kidn ey. Unremarkable urinary bladder. Liver, spleen, pancreas, biliary ducts, and adrenals are unremarkable. No bowel obstruction. No lymph adenopathy in the abdomen or pelvis by size criteria. Normal caliber abdominal aorta. Mesenteric mony bull and portal vein are patent. Unremarkable uterus. MUSCULOSKELETAL: No acute osseous process. IMPRESSION: Acute uncomplicated left pyelonephritis. Electronically signed by: Tami Deleon MD (04/23/2021 12:44 PM) [facility]
[2021-04-23] MEDS ORDERED: cefTRIAXone IV Push 1 GM VIAL. IVP ONE (13:00)
[2021-04-23] MEDS ORDERED: KETOROLAC 30 MG/ML VIAL. IVP ONE (13:15)
[2021-04-23] MEDS ORDERED: ONDANSETRON PF 4 MG/2 ML VIAL. IVP PRN ×2 (13:15→14:00)
[2021-04-23] MEDS ORDERED: ACETAMINOPHEN 325 MG TABLET. PO PRN ×2 (13:15→14:00)
[2021-04-23 13:50] VITALS: BP 102/57
--- NOTE | 2021-04-23 13:55 | PDOC1 ---
History and Physical Date of Service: DOS: DATE: 04/23/21 TIME: 13:49 Chief Complaint: Chief Complain: Flank pain History of Present Illness: HPI: 30-year-old female with past medical history of ADHD, depression and anxiety and multiple UTIs in the past year after her who comes in with bilateral flank pain that radiates across her belly. Pain is 10 out of 10 and is a throbbing in nature. She has been in Bactrim for the last 4 days. She feels is not getting better. Also endorses body aches and fevers. PCP sent her to the emergency room for further evaluation. No exacerbating factors or alleviating factors. She did take Tylenol without any avail. Denies nausea vomiting, diarrhea, shortness of breath, chest pain, palpitations, headaches, syncope. 30 year old female who presents with 4 days of bilateral flank pain but she states more so on the left that radiates all across her abdomen. She rates her pain a 10 out of 10 and states is a throbbing ache. She has been on Bactrim for the last 4 days for urinary tract infection. She states she is not getting better. States she has been running a fever and having body aches. States that her primary care sent her here to the emergency room. She did take Tylenol earlier this morning without relief. Patient denies nausea, vomiting, diarrhea, cough, shortness of breath, chest pain, dizziness, headache, numbness or tingling, focal weakness, vision change. She has a history of kidney infection, UTI, ADHD, , appendectomy, smoking. Past Medical/Surgical History: PMH/PSH: Past Medical History: Kidney Infection, UTI, ADHD Past Surgical History: Appendectomy, Allergies: Allergies: Coded Allergies: ciprofloxacin (Verified Allergy, Unknown, 04/23/21) hot flashes/incontinence "I think I had a seizure". clindamycin (Verified Allergy, Unknown, 04/23/21) incontinence, hot flashes, "I think I had a seizure." Family History: Family History: Reviewed the relevant findings Social History: Social History: Smoking Status: Current Every Day Smoker Alcohol Use: None Drug Use: None Current Medications: Current Medications Current Medications Sodium Chloride 1,000 ml @ 1,000 mls/hr Q1H IV Last administered on 04/23/21at 10:49; Start 04/23/21 at 10:45; Stop 04/23/21 at 11:44; Status DC Fentanyl Citrate (Fentanyl 2ml Vial) 50 mcg 1X ONCE IVP Last administered on 04/23/21at 10:49; Start 04/23/21 at 10:45; Stop 04/23/21 at 11:18; Status DC Iohexol (Omnipaque 300 Mg/ml) 75 ml 1X ONCE IV Last administered on 04/23/21at 11:55; Start 04/23/21 at 11:30; Stop 04/23/21 at 11:32; Status DC Info (CONTRAST GIVEN -- Rx MONITORING) 1 each PRN DAILY PRN MC SEE COMMENTS; Start 04/23/21 at 11:45; Stop 04/25/21 at 11:44 Sodium Chloride 1,000 ml @ 1,000 mls/hr 1X ONCE IV Last administered on 04/23/21at 12:00; Start 04/23/21 at 12:00; Stop 04/23/21 at 12:59; Status DC Ceftriaxone Sodium (Rocephin) 1 gm 1X ONCE IVP Last administered on 04/23/21at 13:18; Start 04/23/21 at 13:00; Stop 04/23/21 at 13:01; Status DC Ondansetron HCl (Zofran) 4 mg PRN Q8HRS PRN IVP NAUSEA/VOMITING; Start 04/23/21 at 13:15; Stop 04/24/21 at 13:14 Acetaminophen (Tylenol) 650 mg PRN Q4HRS PRN PO FEVER > 100.3'F; Start 04/23/21 at 13:15; Stop 04/24/21 at 13:14 Ketorolac Tromethamine (Toradol 30mg Vial) 30 mg 1X ONCE IVP Last administered on 04/23/21at 13:18; Start 04/23/21 at 13:15; Stop 04/23/21 at 13:16; Status DC Active Scripts Active Magnesium Citrate 296 Ml Solution 296 Ml PO ONCE Wdoqptre-Dmnamomdv-Up Ear Susp (Neomycin/Polymyxin B Sulf/Hc) 10 Ml Drops.susp 4 Drop EACH EAR QID 5 Days [place] 5-325 Tablet (Acetaminophen/Hydrocodone Bitart) 1 Each Tablet 0.5-1 Tab PO Q4-6HRS PRN Hydrocodone-Apap 5-325 (Hydrocodone Bit/Acetaminophen) 1 Tab Tablet 0.5-1 Tab PO PRN Q6HRS PRN Levofloxacin 750 Mg Tablet 1 Tab PO DAILY avoid strenous physical activity while taking this medication due increased risk of injury ROS: Review of Systems Review of System REVIEW OF SYSTEMS: GENERAL: Denies weakness SKIN: No bruising, hair changes or rashes. EYES: No blurred, double or loss of vision. NOSE AND THROAT: No history of nosebleeds, hoarseness or sore throat. HEART: No history of palpitations, chest pain or shortness of breath on exertion. LUNGS: Denies cough, hemoptysis, wheezing or shortness of breath. GASTROINTESTINAL: Positive abdominal pain GENITOURINARY: Positive for bilateral flank pain NEUROLOGIC: Denies history of numbness, tingling, or tremor. PSYCHIATRIC: No history of panic, anxiety or depression. ENDOCRINE: No history of heat or cold intolerance, polyuria or polydipsia. EXTREMITIES: Positive for body aches Physical Exam: Vital Signs: Vital Signs Date Time Temp Pulse Resp B/P (MAP) Pulse Ox O2 Delivery O2 Flow Rate FiO2 04/23/21 12:00 99 16 113/60 (77) 99 Room Air 04/23/21 10:20 98.8 98.8 Physcial Exam: General: Well developed, well nourished, no acute distress, well appearing HEENT: Pupils equally round and reactive to light, EOMI, no discharge, normal conjunctiva Neck: Supple, no nuchal rigidity, no JVD, trachea midline, no tenderness Cardiac: RRR, no murmurs, no gallops, no rubs Chest/Lungs: CTAB, no wheeze, no rhonchi, no crackles Abdomen: soft, non-distended, no guarding, no peritoneal signs, tender in the suprapubic region positive CVA tenderness. On the left side Back: No tenderness Extremities: no edema, pulses intact, non-tender,capillary refill <3 sec bilateral upper and lower extremities, Neuro: Alert and oriented x 4, no focal deficits, normal speech Labs: Labs: Laboratory Tests Test 04/23/21 10:36 04/23/21 11:30 04/23/21 11:36 White Blood Count 7.7 x10^3/uL (4.0-11.0) Red Blood Count 4.18 x10^6/uL (3.50-5.40) Hemoglobin 12.3 g/dL (12.0-15.5) Hematocrit 36.6 % (36.0-47.0) Mean Corpuscular Volume 88 fL (79-100) Mean Corpuscular Hemoglobin 29 pg (25-35) Mean Corpuscular Hemoglobin Concent 34 g/dL (31-37) Red Cell Distribution Width 13.6 % (11.5-14.5) Platelet Count 145 x10^3/uL (140-400) Neutrophils (%) (Auto) 88 % (31-73) Lymphocytes (%) (Auto) 8 % (24-48) Monocytes (%) (Auto) 4 % (0-9) Eosinophils (%) (Auto) 0 % (0-3) Basophils (%) (Auto) 0 % (0-3) Neutrophils # (Auto) 6.7 x10^3/uL (1.8-7.7) Lymphocytes # (Auto) 0.6 x10^3/uL (1.0-4.8) Monocytes # (Auto) 0.3 x10^3/uL (0.0-1.1) Eosinophils # (Auto) 0.0 x10^3/uL (0.0-0.7) Basophils # (Auto) 0.0 x10^3/uL (0.0-0.2) Segmented Neutrophils % 86 % (35-66) Band Neutrophils % 6 % (0-9) Lymphocytes % 5 % (24-48) Monocytes % 2 % (0-10) Basophils % 1 % (0-3) Platelet Estimate Adequate (ADEQUATE) Sodium Level 135 mmol/L (136-145) Potassium Level 3.3 mmol/L (3.5-5.1) Chloride Level 99 mmol/L (98-107) Carbon Dioxide Level 27 mmol/L (21-32) Anion Gap 9 (6-14) Blood Urea Nitrogen 10 mg/dL (7-20) Creatinine 1.0 mg/dL (0.6-1.0) Estimated GFR (Cockcroft-Gault) 65.1 BUN/Creatinine Ratio 10 (6-20) Glucose Level 151 mg/dL (70-99) Lactic Acid Level 2.5 mmol/L (0.4-2.0) Calcium Level 8.7 mg/dL (8.5-10.1) Total Bilirubin 0.3 mg/dL (0.2-1.0) Aspartate Amino Transf (AST/SGOT) 14 U/L (15-37) Alanine Aminotransferase (ALT/SGPT) 27 U/L (14-59) Alkaline Phosphatase 59 U/L (46-116) Total Protein 6.9 g/dL (6.4-8.2) Albumin 2.8 g/dL (3.4-5.0) Albumin/Globulin Ratio 0.7 (1.0-1.7) Lipase 74 U/L (73-393) Urine Collection Type Unknown Urine Color Yellow Urine Clarity Cloudy Urine pH 6.0 (<5.0-8.0) Urine Specific [place] 1.020 (1.000-1.030) Urine Protein 30 mg/dL (NEG-TRACE) Urine Glucose (UA) Negative mg/dL (NEG) Urine Ketones (Stick) Negative mg/dL (NEG) Urine Blood Negative (NEG) Urine Nitrite Negative (NEG) Urine Bilirubin Negative (NEG) Urine Urobilinogen Dipstick 0.2 mg/dL (0.2 mg/dL) Urine Leukocyte Esterase Small (NEG) Urine RBC 0 /HPF (0-2) Urine WBC 5-10 /HPF (0-4) Urine Squamous Epithelial Cells Many /LPF Urine Bacteria Moderate /HPF (0-FEW) Urine Mucus Mod /LPF Bedside Urine HCG, Qualitative Hcg negative (Negative) Laboratory Tests Test 04/23/21 10:36 04/23/21 11:30 04/23/21 11:36 White Blood Count 7.7 x10^3/uL (4.0-11.0) Red Blood Count 4.18 x10^6/uL (3.50-5.40) Hemoglobin 12.3 g/dL (12.0-15.5) Hematocrit 36.6 % (36.0-47.0) Mean Corpuscular Volume 88 fL (79-100) Mean Corpuscular Hemoglobin 29 pg (25-35) Mean Corpuscular Hemoglobin Concent 34 g/dL (31-37) Red Cell Distribution Width 13.6 % (11.5-14.5) Platelet Count 145 x10^3/uL (140-400) Neutrophils (%) (Auto) 88 % (31-73) Lymphocytes (%) (Auto) 8 % (24-48) Monocytes (%) (Auto) 4 % (0-9) Eosinophils (%) (Auto) 0 % (0-3) Basophils (%) (Auto) 0 % (0-3) Neutrophils # (Auto) 6.7 x10^3/uL (1.8-7.7) Lymphocytes # (Auto) 0.6 x10^3/uL (1.0-4.8) Monocytes # (Auto) 0.3 x10^3/uL (0.0-1.1) Eosinophils # (Auto) 0.0 x10^3/uL (0.0-0.7) Basophils # (Auto) 0.0 x10^3/uL (0.0-0.2) Segmented Neutrophils % 86 % (35-66) Band Neutrophils % 6 % (0-9) Lymphocytes % 5 % (24-48) Monocytes % 2 % (0-10) Basophils % 1 % (0-3) Platelet Estimate Adequate (ADEQUATE) Sodium Level 135 mmol/L (136-145) Potassium Level 3.3 mmol/L (3.5-5.1) Chloride Level 99 mmol/L (98-107) Carbon Dioxide Level 27 mmol/L (21-32) Anion Gap 9 (6-14) Blood Urea Nitrogen 10 mg/dL (7-20) Creatinine 1.0 mg/dL (0.6-1.0) Estimated GFR (Cockcroft-Gault) 65.1 BUN/Creatinine Ratio 10 (6-20) Glucose Level 151 mg/dL (70-99) Lactic Acid Level 2.5 mmol/L (0.4-2.0) Calcium Level 8.7 mg/dL (8.5-10.1) Total Bilirubin 0.3 mg/dL (0.2-1.0) Aspartate Amino Transf (AST/SGOT) 14 U/L (15-37) Alanine Aminotransferase (ALT/SGPT) 27 U/L (14-59) Alkaline Phosphatase 59 U/L (46-116) Total Protein 6.9 g/dL (6.4-8.2) Albumin 2.8 g/dL (3.4-5.0) Albumin/Globulin Ratio 0.7 (1.0-1.7) Lipase 74 U/L (73-393) Urine Collection Type Unknown Urine Color Yellow Urine Clarity Cloudy Urine pH 6.0 (<5.0-8.0) Urine Specific [place] 1.020 (1.000-1.030) Urine Protein 30 mg/dL (NEG-TRACE) Urine Glucose (UA) Negative mg/dL (NEG) Urine Ketones (Stick) Negative mg/dL (NEG) Urine Blood Negative (NEG) Urine Nitrite Negative (NEG) Urine Bilirubin Negative (NEG) Urine Urobilinogen Dipstick 0.2 mg/dL (0.2 mg/dL) Urine Leukocyte Esterase Small (NEG) Urine RBC 0 /HPF (0-2) Urine WBC 5-10 /HPF (0-4) Urine Squamous Epithelial Cells Many /LPF Urine Bacteria Moderate /HPF (0-FEW) Urine Mucus Mod /LPF Bedside Urine HCG, Qualitative Hcg negative (Negative) Images: Images PROCEDURE: CT ABD PELV W/ IV CONTRST ONLY IMPRESSION: Acute uncomplicated left pyelonephritis. Assessment/Plan Assessment/Plan Acute left pyelonephritis Hyponatremia, hypokalemia Lactic acidemia Severe protein malnutrition Admit to hospitalist for further management Continue empiric IV antibiotics Pending blood and urine cultures Lovenox for DVT prophylaxis Regular diet CODE STATUS full Discussed with RN and SW Disposition inpatient management as above DPOA: Smoking cessation: Total time spent was 12 minutes in face to face counseling. Patient has agreed to consider nicotine patches/gum or to start on Varnicline when discharged Justifications for Admission Other Justification KIMBERLY VILLALPANDO MD Apr 23, 2021 13:55
[2021-04-23] MEDS ORDERED: cefTRIAXone IV Push 1 GM VIAL. IVP SCH (14:00)
[2021-04-23] MEDS ORDERED: DOCUSATE SODIUM 100 MG CAPSULE. PO PRN (14:00)
[2021-04-23] MEDS ORDERED: PROCHLORPERAZINE 10 MG/2 ML VIAL. IV PRN (14:00)
[2021-04-23] MEDS ORDERED: DEXTROSE 50% 25 GM / 50ML DISP.SYRIN. IV PRN (14:00)
[2021-04-23] MEDS: KETOROLAC 30 MG/ML VIAL. IVP SCH ×2 (14:47→21:38)
[2021-04-23] MEDS: IV NORMAL SALINE 1000ML BAG 1,000 ML IV SCH ×2 (14:47→21:33)
[2021-04-23] MEDS: ENOXAPARIN 40 MG/0.4 ML SYRINGE. SQ SCH (15:05)
[2021-04-23] MEDS: HYDROcodone/APAP 5/325MG 1 TAB TABLET PO PRN (15:06)
[2021-04-23] MEDS ORDERED: GABA-585 PO (15:22)
[2021-04-23] MEDS ORDERED: DEXT20TA2 PO (15:22)
[2021-04-23] MEDS ORDERED: BUSP7.5T PO (15:22)
[2021-04-23] MEDS ORDERED: BUPR150T15 PO (15:22)
[2021-04-23] MEDS ORDERED: CLON-77 PO (15:22)
[2021-04-23 19:00] VITALS: BP 99/56
[2021-04-23] MEDS ORDERED: clonazePAM 0.5 MG TABLET PO PRN (19:15)
[2021-04-23] MEDS: GABAPENTIN 100 MG CAPSULE. PO SCH (20:32)
[2021-04-23] MEDS: buPROPion XL 150 MG TAB.ER.24H. PO SCH (20:32)
[2021-04-23] MEDS: busPIRone 5 MG TABLET. PO SCH (20:33)
[2021-04-23] MEDS: NON FORMULARY ITEM (Dextroamphetamine/Amphetamine (Adderall 20 Mg Tablet) 1 TAB) PO SCH (21:00)
[2021-04-23] MEDS ORDERED: SULF1TAB24 PO (21:48)
[2021-04-23 23:00] VITALS: BP 109/61
[2021-04-24] MEDS ORDERED: SIMETHICONE 80 MG TAB.CHEW PO ONE (00:30)
[2021-04-24] MEDS: HYDROcodone/APAP 5/325MG 1 TAB TABLET PO PRN ×3 (03:00→23:14)
[2021-04-24 03:03] VITALS: BP 110/74
[2021-04-24] MEDS: KETOROLAC 30 MG/ML VIAL. IVP SCH ×3 (06:00→23:15)
[2021-04-24] MEDS: IV NORMAL SALINE 1000ML BAG 1,000 ML IV SCH ×4 (06:04→21:22)
[2021-04-24 06:18] LABS: BASO % 1 % (0-3); EOS % 1 % (0-3); HEMATOCRIT 28.7 % (36.0-47.0); HEMOGLOBIN 9.7 g/dL (12.0-15.5); LYMPH # 0.7 x10^3/uL (1.0-4.8); LYMPH % 17 % (24-48); MEAN CORPUSCULAR HEMOGLOBIN 30 pg (25-35); MEAN CORPUSCULAR HGB CONC 34 g/dL (31-37); MEAN CORPUSCULAR VOLUME 89 fL (79-100); MONO # 0.3 x10^3/uL (0.0-1.1); MONO % 7 % (0-9); NEUT # 3.1 x10^3/uL (1.8-7.7); NEUT % 74 % (31-73); PLATELET COUNT 109 x10^3/uL (140-400); RED BLOOD COUNT 3.23 x10^6/uL (3.50-5.40); RED CELL DISTRIBUTION WIDTH 13.8 % (11.5-14.5); WHITE BLOOD COUNT 4.1 x10^3/uL (4.0-11.0)
[2021-04-24 06:34] LABS: CALCIUM 7.3 mg/dL (8.5-10.1); CREATININE 0.7 mg/dL (0.6-1.0); GFR 98.3; MAGNESIUM 1.9 mg/dL (1.8-2.4); PHOSPHORUS 1.6 mg/dL (2.6-4.7); POTASSIUM 3.8 mmol/L (3.5-5.1)
[2021-04-24 07:16] VITALS: BP 112/62
[2021-04-24] MEDS: SENNOSIDES 8.6 MG TABLET PO PRN ×3 (07:17→21:19)
[2021-04-24] MEDS: GABAPENTIN 100 MG CAPSULE. PO SCH ×3 (08:29→21:19)
[2021-04-24] MEDS: buPROPion XL 150 MG TAB.ER.24H. PO SCH ×2 (08:29→20:38)
[2021-04-24] MEDS: busPIRone 5 MG TABLET. PO SCH ×2 (08:29→20:39)
[2021-04-24] MEDS: NON FORMULARY ITEM (Dextroamphetamine/Amphetamine (Adderall 20 Mg Tablet) 1 TAB) PO SCH (08:36)
[2021-04-24 11:20] VITALS: BP 110/66
--- NOTE | 2021-04-24 12:03 | PDOC ---
[facility] PROGRESS NOTE Date of Service DOS: DATE: 04/24/21 TIME: 12:01 Chief Complaint Chief Complaint Assessment/Plan Acute left pyelonephritis Hyponatremia, hypokalemia Lactic acidemia Severe protein malnutrition Admit to hospitalist for further management Continue empiric IV antibiotics Pending blood and urine cultures Lovenox for DVT prophylaxis Regular diet CODE STATUS full Discussed with RN and SW Disposition inpatient management as above DPOA: History of Present Illness History of Present Illness 30-year-old female with past medical history of ADHD, depression and anxiety and multiple UTIs in the past year after her who comes in with bilateral flank pain that radiates across her belly. Pain is 10 out of 10 and is a throbbing in nature. She has been in Bactrim for the last 4 days. She feels is not getting better. Also endorses body aches and fevers. PCP sent her to the emergency room for further evaluation. No exacerbating factors or alleviating factors. She did take Tylenol without any avail. Denies nausea vomiting, diarrhea, shortness of breath, chest pain, palpitations, headaches, syncope. 04/24/2021 No acute events overnight. Patient seen and examined bedside. Afebrile in last 24 hours. Continues to feel weak but somewhat improved. Does not have as much pain compared to yesterday. Adequate urine output. Patient's chart, labs, images were reviewed and discussed with RN Vitals/I&O Vitals/I&O: Vital Signs Date Time Temp Pulse Resp B/P (MAP) Pulse Ox O2 Delivery O2 Flow Rate FiO2 04/24/21 11:20 98.1 78 16 110/66 (81) 98 Room Air 98.1 I & O 04/23/21 04/23/21 04/24/21 15:00 23:00 07:00 Intake Total 1100 ml 2160 ml Output Total 450 ml Balance 1100 ml 1710 ml Physical Exam General: Alert, Oriented X3, Cooperative Heart: Regular rate Lungs: Clear Abdomen: Normal bowel sounds Extremities: No clubbing Skin: No rashes, No significant lesion Labs Labs: Laboratory Tests Test 04/23/21 13:20 04/23/21 15:30 04/24/21 05:45 04/24/21 06:10 SARS-CoV-2 RNA (ADENIKE) Negative (Negative) Lactic Acid Level 1.6 mmol/L (0.4-2.0) Sodium Level 140 mmol/L (136-145) Potassium Level 3.8 mmol/L (3.5-5.1) Chloride Level 109 mmol/L (98-107) Carbon Dioxide Level 21 mmol/L (21-32) Anion Gap 10 (6-14) Blood Urea Nitrogen 8 mg/dL (7-20) Creatinine 0.7 mg/dL (0.6-1.0) Estimated GFR (Cockcroft-Gault) 98.3 Glucose Level 93 mg/dL (70-99) Calcium Level 7.3 mg/dL (8.5-10.1) Phosphorus Level 1.6 mg/dL (2.6-4.7) Magnesium Level 1.9 mg/dL (1.8-2.4) White Blood Count 4.1 x10^3/uL (4.0-11.0) Red Blood Count 3.23 x10^6/uL (3.50-5.40) Hemoglobin 9.7 g/dL (12.0-15.5) Hematocrit 28.7 % (36.0-47.0) Mean Corpuscular Volume 89 fL (79-100) Mean Corpuscular Hemoglobin 30 pg (25-35) Mean Corpuscular Hemoglobin Concent 34 g/dL (31-37) Red Cell Distribution Width 13.8 % (11.5-14.5) Platelet Count 109 x10^3/uL (140-400) Neutrophils (%) (Auto) 74 % (31-73) Lymphocytes (%) (Auto) 17 % (24-48) Monocytes (%) (Auto) 7 % (0-9) Eosinophils (%) (Auto) 1 % (0-3) Basophils (%) (Auto) 1 % (0-3) Neutrophils # (Auto) 3.1 x10^3/uL (1.8-7.7) Lymphocytes # (Auto) 0.7 x10^3/uL (1.0-4.8) Monocytes # (Auto) 0.3 x10^3/uL (0.0-1.1) Eosinophils # (Auto) 0.0 x10^3/uL (0.0-0.7) Basophils # (Auto) 0.0 x10^3/uL (0.0-0.2) Assessment and Plan Assessmemt and Plan Problems Medical Problems: (1) Pyelonephritis Status: Acute (2) SIRS (systemic inflammatory response syndrome) Status: Acute Comment Review of Relevant I have reviewed the following items savanna (where applicable) has been applied. Medications: Current Medications Medications (Trade) Dose Ordered Sig/Jeannie Route PRN Reason Start Time Stop Time Status Last Admin Dose Admin Ceftriaxone Sodium (Rocephin) 1 gm 1X ONCE IVP 04/23/21 13:00 04/23/21 13:01 DC 04/23/21 13:18 Ketorolac Tromethamine (Toradol 30mg Vial) 30 mg 1X ONCE IVP 04/23/21 13:15 04/23/21 13:16 DC 04/23/21 13:18 Sennosides (Senna) 17.2 mg PRN BID PRN PO CONSTIPATION 04/23/21 14:00 04/24/21 07:17 Sodium Chloride 1,000 ml @ 150 mls/hr Q6H40M IV 04/23/21 14:00 04/24/21 06:04 Enoxaparin Sodium (Lovenox 40mg Syringe) 40 mg Q24H SQ 04/23/21 14:00 04/23/21 15:05 Ketorolac Tromethamine (Toradol 30mg Vial) 30 mg Q8HRS IVP 04/23/21 14:00 04/25/21 13:59 04/24/21 06:00 Acetaminophen/ Hydrocodone Bitart (Lortab 5/325) 1 tab PRN Q4HRS PRN PO MODERATE TO SEVERE PAIN 04/23/21 15:00 04/24/21 08:33 Bupropion HCl (Wellbutrin Xl) 150 mg BID PO 04/23/21 21:00 04/24/21 08:29 Gabapentin (Neurontin) 100 mg TID PO 04/23/21 21:00 04/24/21 08:29 Buspirone HCl (Buspar) 7.5 mg BID PO 04/23/21 21:00 04/24/21 08:29 Justifications for Admission Other Justification Acute pyelonephritis KIMBERLY VILLALPANDO MD Apr 24, 2021 12:03
[2021-04-24] MEDS ORDERED: SODIUM PHOSPHATE 20 MMOL in IV NORMAL SALINE 250ML 250 ML IV ONE (13:00)
[2021-04-24] MEDS ORDERED: cefTRIAXone IV Push 1 GM VIAL. IVP SCH (13:00)
[2021-04-24] MEDS: ENOXAPARIN 40 MG/0.4 ML SYRINGE. SQ SCH (14:27)
[2021-04-24 15:00] VITALS: BP 108/71
[2021-04-24 19:00] VITALS: BP 119/69
[2021-04-24 23:00] VITALS: BP 140/90
[2021-04-25] MEDS ORDERED: MAGNESIUM CITRATE 296 ML SOLUTION. PO ONE (00:30)
[2021-04-25] MEDS: IV NORMAL SALINE 1000ML BAG 1,000 ML IV SCH ×2 (06:16→12:40)
[2021-04-25] MEDS: SIMETHICONE 80 MG TAB.CHEW PO PRN ×2 (06:16→12:16)
[2021-04-25] MEDS: KETOROLAC 30 MG/ML VIAL. IVP SCH (06:16)
[2021-04-25 06:56] LABS: CALCIUM 7.9 mg/dL (8.5-10.1); CREATININE 0.7 mg/dL (0.6-1.0); GFR 98.3; MAGNESIUM 2.3 mg/dL (1.8-2.4); POTASSIUM 3.6 mmol/L (3.5-5.1)
[2021-04-25 07:00] VITALS: BP 122/83
[2021-04-25 07:38] LABS: BASO % 1 % (0-3); EOS # 0.1 x10^3/uL (0.0-0.7); EOS % 2 % (0-3); HEMATOCRIT 29.1 % (36.0-47.0); HEMOGLOBIN 9.7 g/dL (12.0-15.5); LYMPH % 29 % (24-48); MEAN CORPUSCULAR HEMOGLOBIN 30 pg (25-35); MEAN CORPUSCULAR HGB CONC 33 g/dL (31-37); MEAN CORPUSCULAR VOLUME 89 fL (79-100); MONO # 0.4 x10^3/uL (0.0-1.1); MONO % 11 % (0-9); NEUT % 58 % (31-73); PLATELET COUNT 140 x10^3/uL (140-400); RED BLOOD COUNT 3.28 x10^6/uL (3.50-5.40); RED CELL DISTRIBUTION WIDTH 13.5 % (11.5-14.5); WHITE BLOOD COUNT 3.4 x10^3/uL (4.0-11.0)
[2021-04-25] MEDS: busPIRone 5 MG TABLET. PO SCH (09:00)
[2021-04-25] MEDS: GABAPENTIN 100 MG CAPSULE. PO SCH ×2 (10:05→13:45)
[2021-04-25] MEDS: buPROPion XL 150 MG TAB.ER.24H. PO SCH (10:05)
--- NOTE | 2021-04-25 10:22 | NUR ---
SW following. Discussed with RN, pt from home, room air, regular diet, COVID-19 negative. IV abx. Pt wanting to discharge home. RN advised no SW needs at this time. SW will continue to follow.
[2021-04-25 11:00] VITALS: BP 123/86
--- NOTE | 2021-04-25 11:53 | PDOC ---
[employer] PROGRESS NOTE Date of Service DOS: DATE: 04/25/21 TIME: 11:49 Chief Complaint Chief Complaint Assessment/Plan Acute left pyelonephritis Hyponatremia, hypokalemia Lactic acidemia Severe protein malnutrition Admit to hospitalist for further management Continue empiric IV antibiotics Pending blood and urine cultures Lovenox for DVT prophylaxis Regular diet CODE STATUS full Discussed with RN and SW Disposition inpatient management as above DPOA: History of Present Illness History of Present Illness 30-year-old female with past medical history of ADHD, depression and anxiety and multiple UTIs in the past year after her who comes in with bilateral flank pain that radiates across her belly. Pain is 10 out of 10 and is a throbbing in nature. She has been in Bactrim for the last 4 days. She feels is not getting better. Also endorses body aches and fevers. PCP sent her to the emergency room for further evaluation. No exacerbating factors or alleviating factors. She did take Tylenol without any avail. Denies nausea vomiting, diarrhea, shortness of breath, chest pain, palpitations, headaches, syncope. 04/24/2021 No acute events overnight. Patient seen and examined bedside. Afebrile in last 24 hours. Continues to feel weak but somewhat improved. Does not have as much pain compared to yesterday. Adequate urine output. Patient's chart, labs, images were reviewed and discussed with RN 04/25: Afebrile overnight. Pain under better control. Has no pain today. Did not sleep overnight. After receiving doses of IV Rocephin she is improved and notes that she already has prescription for 10 days of Bactrim DS twice daily at home. All questions answered she will go home on Bactrim and continue to hydrate. Vitals/I&O Vitals/I&O: Vital Signs Date Time Temp Pulse Resp B/P (MAP) Pulse Ox O2 Delivery O2 Flow Rate FiO2 04/25/21 07:00 97.8 86 16 122/83 (96) 96 Room Air 97.8 I & O 04/24/21 04/24/21 04/25/21 15:00 23:00 07:00 Intake Total 200 ml 120 ml Balance 200 ml 120 ml Physical Exam General: Alert, Oriented X3, Cooperative Heart: Regular rate Lungs: Clear Abdomen: Normal bowel sounds Extremities: No clubbing Skin: No rashes, No significant lesion Labs Labs: Laboratory Tests Test 04/25/21 05:15 White Blood Count 3.4 x10^3/uL (4.0-11.0) Red Blood Count 3.28 x10^6/uL (3.50-5.40) Hemoglobin 9.7 g/dL (12.0-15.5) Hematocrit 29.1 % (36.0-47.0) Mean Corpuscular Volume 89 fL (79-100) Mean Corpuscular Hemoglobin 30 pg (25-35) Mean Corpuscular Hemoglobin Concent 33 g/dL (31-37) Red Cell Distribution Width 13.5 % (11.5-14.5) Platelet Count 140 x10^3/uL (140-400) Neutrophils (%) (Auto) 58 % (31-73) Lymphocytes (%) (Auto) 29 % (24-48) Monocytes (%) (Auto) 11 % (0-9) Eosinophils (%) (Auto) 2 % (0-3) Basophils (%) (Auto) 1 % (0-3) Neutrophils # (Auto) 2.0 x10^3/uL (1.8-7.7) Lymphocytes # (Auto) 1.0 x10^3/uL (1.0-4.8) Monocytes # (Auto) 0.4 x10^3/uL (0.0-1.1) Eosinophils # (Auto) 0.1 x10^3/uL (0.0-0.7) Basophils # (Auto) 0.0 x10^3/uL (0.0-0.2) Sodium Level 141 mmol/L (136-145) Potassium Level 3.6 mmol/L (3.5-5.1) Chloride Level 110 mmol/L (98-107) Carbon Dioxide Level 24 mmol/L (21-32) Anion Gap 7 (6-14) Blood Urea Nitrogen 4 mg/dL (7-20) Creatinine 0.7 mg/dL (0.6-1.0) Estimated GFR (Cockcroft-Gault) 98.3 Glucose Level 107 mg/dL (70-99) Calcium Level 7.9 mg/dL (8.5-10.1) Magnesium Level 2.3 mg/dL (1.8-2.4) Assessment and Plan Assessmemt and Plan Problems Medical Problems: (1) Pyelonephritis Status: Acute (2) SIRS (systemic inflammatory response syndrome) Status: Acute Comment Review of Relevant I have reviewed the following items savanna (where applicable) has been applied. Medications: Current Medications Medications (Trade) Dose Ordered Sig/Jeannie Route PRN Reason Start Time Stop Time Status Last Admin Dose Admin Ceftriaxone Sodium (Rocephin) 1 gm Q24H IVP 04/24/21 13:00 04/24/21 13:00 Sodium Phosphate 20 mmol/Sodium Chloride 256.6667 ml @ 64.167 m... 1X ONCE IV 04/24/21 13:00 04/24/21 16:59 DC 04/24/21 13:00 Simethicone (Gas-X) 80 mg PRN AFTMEALHC PRN PO GAS / BLOATING 04/25/21 00:00 04/25/21 06:16 Magnesium Citrate (Citroma) 296 ml 1X ONCE PO 04/25/21 00:30 04/25/21 00:32 DC 04/25/21 00:39 Justifications for Admission Other Justification Acute pyelonephritis JULIÁN SEGOVIA MD Apr 25, 2021 11:52
--- NOTE | 2021-04-25 12:02 | PDOC3 ---
Discharge Summary Visit Information Date of Admission: Apr 23, 2021 Date of Discharge: Apr 25, 2021 Admitting Diagnosis: Left pyelonephritis Final Diagnosis Problems Medical Problems: (1) Pyelonephritis Status: Acute (2) SIRS (systemic inflammatory response syndrome) Status: Acute Brief Hospital Course Allergies Allergies Coded Allergies Type Severity Reaction Last Updated Verified ciprofloxacin Allergy Intermediate 04/24/21 Yes clindamycin Allergy Intermediate 04/24/21 Yes Vital Signs Vital Signs Date Time Temp Pulse Resp B/P (MAP) Pulse Ox O2 Delivery O2 Flow Rate FiO2 04/25/21 11:00 97.5 75 16 123/86 (98) 98 Room Air 97.5 Lab Results Laboratory Tests Test 04/23/21 13:20 04/23/21 15:30 04/24/21 05:45 04/24/21 06:10 SARS-CoV-2 RNA (ADENIKE) Negative (Negative) Lactic Acid Level 1.6 mmol/L (0.4-2.0) Sodium Level 140 mmol/L (136-145) Potassium Level 3.8 mmol/L (3.5-5.1) Chloride Level 109 mmol/L (98-107) Carbon Dioxide Level 21 mmol/L (21-32) Anion Gap 10 (6-14) Blood Urea Nitrogen 8 mg/dL (7-20) Creatinine 0.7 mg/dL (0.6-1.0) Estimated GFR (Cockcroft-Gault) 98.3 Glucose Level 93 mg/dL (70-99) Calcium Level 7.3 mg/dL (8.5-10.1) Phosphorus Level 1.6 mg/dL (2.6-4.7) Magnesium Level 1.9 mg/dL (1.8-2.4) White Blood Count 4.1 x10^3/uL (4.0-11.0) Red Blood Count 3.23 x10^6/uL (3.50-5.40) Hemoglobin 9.7 g/dL (12.0-15.5) Hematocrit 28.7 % (36.0-47.0) Mean Corpuscular Volume 89 fL (79-100) Mean Corpuscular Hemoglobin 30 pg (25-35) Mean Corpuscular Hemoglobin Concent 34 g/dL (31-37) Red Cell Distribution Width 13.8 % (11.5-14.5) Platelet Count 109 x10^3/uL (140-400) Neutrophils (%) (Auto) 74 % (31-73) Lymphocytes (%) (Auto) 17 % (24-48) Monocytes (%) (Auto) 7 % (0-9) Eosinophils (%) (Auto) 1 % (0-3) Basophils (%) (Auto) 1 % (0-3) Neutrophils # (Auto) 3.1 x10^3/uL (1.8-7.7) Lymphocytes # (Auto) 0.7 x10^3/uL (1.0-4.8) Monocytes # (Auto) 0.3 x10^3/uL (0.0-1.1) Eosinophils # (Auto) 0.0 x10^3/uL (0.0-0.7) Basophils # (Auto) 0.0 x10^3/uL (0.0-0.2) Test 04/25/21 05:15 White Blood Count 3.4 x10^3/uL (4.0-11.0) Red Blood Count 3.28 x10^6/uL (3.50-5.40) Hemoglobin 9.7 g/dL (12.0-15.5) Hematocrit 29.1 % (36.0-47.0) Mean Corpuscular Volume 89 fL (79-100) Mean Corpuscular Hemoglobin 30 pg (25-35) Mean Corpuscular Hemoglobin Concent 33 g/dL (31-37) Red Cell Distribution Width 13.5 % (11.5-14.5) Platelet Count 140 x10^3/uL (140-400) Neutrophils (%) (Auto) 58 % (31-73) Lymphocytes (%) (Auto) 29 % (24-48) Monocytes (%) (Auto) 11 % (0-9) Eosinophils (%) (Auto) 2 % (0-3) Basophils (%) (Auto) 1 % (0-3) Neutrophils # (Auto) 2.0 x10^3/uL (1.8-7.7) Lymphocytes # (Auto) 1.0 x10^3/uL (1.0-4.8) Monocytes # (Auto) 0.4 x10^3/uL (0.0-1.1) Eosinophils # (Auto) 0.1 x10^3/uL (0.0-0.7) Basophils # (Auto) 0.0 x10^3/uL (0.0-0.2) Sodium Level 141 mmol/L (136-145) Potassium Level 3.6 mmol/L (3.5-5.1) Chloride Level 110 mmol/L (98-107) Carbon Dioxide Level 24 mmol/L (21-32) Anion Gap 7 (6-14) Blood Urea Nitrogen 4 mg/dL (7-20) Creatinine 0.7 mg/dL (0.6-1.0) Estimated GFR (Cockcroft-Gault) 98.3 Glucose Level 107 mg/dL (70-99) Calcium Level 7.9 mg/dL (8.5-10.1) Magnesium Level 2.3 mg/dL (1.8-2.4) Laboratory Tests Test 04/25/21 05:15 White Blood Count 3.4 x10^3/uL (4.0-11.0) Red Blood Count 3.28 x10^6/uL (3.50-5.40) Hemoglobin 9.7 g/dL (12.0-15.5) Hematocrit 29.1 % (36.0-47.0) Mean Corpuscular Volume 89 fL (79-100) Mean Corpuscular Hemoglobin 30 pg (25-35) Mean Corpuscular Hemoglobin Concent 33 g/dL (31-37) Red Cell Distribution Width 13.5 % (11.5-14.5) Platelet Count 140 x10^3/uL (140-400) Neutrophils (%) (Auto) 58 % (31-73) Lymphocytes (%) (Auto) 29 % (24-48) Monocytes (%) (Auto) 11 % (0-9) Eosinophils (%) (Auto) 2 % (0-3) Basophils (%) (Auto) 1 % (0-3) Neutrophils # (Auto) 2.0 x10^3/uL (1.8-7.7) Lymphocytes # (Auto) 1.0 x10^3/uL (1.0-4.8) Monocytes # (Auto) 0.4 x10^3/uL (0.0-1.1) Eosinophils # (Auto) 0.1 x10^3/uL (0.0-0.7) Basophils # (Auto) 0.0 x10^3/uL (0.0-0.2) Sodium Level 141 mmol/L (136-145) Potassium Level 3.6 mmol/L (3.5-5.1) Chloride Level 110 mmol/L (98-107) Carbon Dioxide Level 24 mmol/L (21-32) Anion Gap 7 (6-14) Blood Urea Nitrogen 4 mg/dL (7-20) Creatinine 0.7 mg/dL (0.6-1.0) Estimated GFR (Cockcroft-Gault) 98.3 Glucose Level 107 mg/dL (70-99) Calcium Level 7.9 mg/dL (8.5-10.1) Magnesium Level 2.3 mg/dL (1.8-2.4) Brief Hospital Course 30-year-old female with past medical history of ADHD, depression and anxiety and multiple UTIs in the past year after her who comes in with bilateral flank pain that radiates across her belly. Pain is 10 out of 10 and is a throbbing in nature. She has been in Bactrim for the last 4 days. She feels is not getting better. Also endorses body aches and fevers. PCP sent her to the emergency room for further evaluation. No exacerbating factors or alleviating factors. She did take Tylenol without any avail. Denies nausea vomiting, diarrhea, shortness of breath, chest pain, palpitations, headaches, syncope. 04/24/2021 No acute events overnight. Patient seen and examined bedside. Afebrile in last 24 hours. Continues to feel weak but somewhat improved. Does not have as much pain compared to yesterday. Adequate urine output. Patient's chart, labs, images were reviewed and discussed with RN 04/25: Afebrile overnight. Pain under better control. Has no pain today. Did not sleep overnight. After receiving doses of IV Rocephin she is improved and notes that she already has prescription for 10 days of Bactrim DS twice daily at home. All questions answered she will go home on Bactrim and continue to hydrate. Problem list: Acute left pyelonephritis Hyponatremia, hypokalemia Lactic acidemia Severe protein malnutrition Greater than 30 minutes spent on d/c home with self care. Discharge Information Condition at Discharge: Improved Follow Up: Weeks (1) Disposition/Orders: D/C to Home Scheduled Bupropion Hcl (Wellbutrin Xl) 150 Mg Tab.er.24h, 150 MG PO BID for depression, (Reported) Entered as Reported by: NJ BUCKLEY on 04/23/211521 Last Action: Continued on 04/23/211904 by NJ BUCKLEY Buspirone Hcl (Buspirone Hcl) 7.5 Mg Tablet, 7.5 MG PO BID for anxiety, (Reported) Entered as Reported by: NJ BUCKLEY on 04/23/211521 Last Action: Converted on 04/23/211904 by NJ BUCKLEY Dextroamphetamine/Amphetamine (Adderall 20 Mg Tablet) 20 Mg Tablet, 1 TAB PO BID for anxiety MDD 2 Tablet(s) for 5 Days, #10 Ref 0 (Reported) Entered as Reported by: NJ BUCKLEY on 04/23/211521 Last Action: Converted on 04/23/211904 by NJ BUCKLEY Gabapentin (Gabapentin ) 100 Mg Capsule, 100 MG PO TID for NEUROGENIC PAIN, (Reported) Entered as Reported by: NJ BUCKLEY on 04/23/211521 Last Action: Continued on 04/23/211904 by NJ BUCKLEY Sulfamethoxazole/Trimethoprim (Bactrim Ds Tablet) 1 Each Tablet, 1 TAB PO BID for kidney infection for 10 Days, #20 Ref 0 (Reported) Entered as Reported by: EDMUNDO MELVIN on 04/23/212147 Last Action: New Order on 04/23/212147 by EDMUNDO MELVIN Scheduled PRN Clonazepam (Clonazepam ) 0.5 Mg Tablet, 0.5 MG PO DAILY PRN for ANXIETY / AGITATION, (Reported) Entered as Reported by: NJ BUCKLEY on 04/23/211521 Last Action: Continued on 04/23/211904 by NJ BUCKLEY Justicifation of Admission Dx: Justifications for Admission: Justification of Admission Dx: Yes JULIÁN SEGOVIA MD Apr 25, 2021 12:02
[2021-04-25] MEDS ORDERED: CEFDINIR 300 MG CAPSULE PO SCH (12:30)
[2021-04-25] MEDS ORDERED: POTASSIUM & SODIUM PHOSPHATES PACKET. PO SCH (13:00)
[2021-04-25] MEDS ORDERED: PANTOPRAZOLE 40 MG TABLET.DR. PO ONE (13:15)
--- NOTE | 2021-04-25 16:39 | NUR ---
Discharge Note: HARISH PANTOJA [address] [place] [address] Discharge instructions and discharge home medications reviewed with Patient and a copy given. All questions have been answered and understanding verbalized. The following instructions and handouts were given: Diet, activity, medication list and follow up instructions provided to patient. Discontinued lines and drains: Peripheral IV discontinued and catheter intact. Patient discharged to Home or Self Care with Family Member via
[2021-04-25] MEDS ORDERED: LACTOBACILLUS RHAMNOSUS GG 1 CAPSULE. PO SCH (21:00)
== END 2021-04-25 14:55 | disposition home or self-care (01) ==
LOC: ER 10:13 → 4 NORTH 13:00
PROVIDERS: ADMIT Internal Medicine; ATTEND Internal Medicine
DX: N12 Tubulo-interstitial nephritis, not specified as acute or chronic (principal); Z20.822 Contact with and (suspected) exposure to COVID-19; R65.10 Systemic inflammatory response syndrome (SIRS) of non-infectious origin without acute organ dysfunction; F17.200 Nicotine dependence, unspecified, uncomplicated; E87.6 Hypokalemia; F90.9 Attention-deficit hyperactivity disorder, unspecified type; F32.9 Major depressive disorder, single episode, unspecified; F41.9 Anxiety disorder, unspecified; R53.1 Weakness; E43 Unspecified severe protein-calorie malnutrition; E87.1 Hypo-osmolality and hyponatremia; E87.2 Acidosis; Z87.440 Personal history of urinary (tract) infections; Z90.49 Acquired absence of other specified parts of digestive tract; Z98.890 Other specified postprocedural states
CPT/HCPCS: 36415; 74177; 80048; 80053; 81001; 81025; 83605; 83690; 83735; 84100; 85007; 85025; 87040; 87086; 96361; 96365; 96366; 96372; 96375; 96376; 99285; G0378; J0696; J1650; J1885; J2405; J3010; J7030; J7050; Q9967; U0003; U0005; G0379